=== PATIENT | male | born 1995 | race Caucasian/White ===

== ENCOUNTER 2022-06-06 13:27 | Inpatient (IN) | payer BC ==
[~2022-06-06] VITALS: Ht 175.3 cm; Wt 116.6 kg
[~2022-06-06 13:27] MED LIST: CLEOCIN HCL300 MG PO; FLAGYL500 MG PO; GLUCOPHAGE500 MG PO; LEVAQUIN750 MG PO; PREDNISONE20 MG PO
[2022-06-06 14:06] LABS: HEMOGLOBIN 18.3 gm/dl (14.0-17.5); RED BLOOD COUNT 6.05 M/UL (4.20-5.50); WHITE BLOOD COUNT 23.3 K/UL (4.5-11.0)
[2022-06-06 14:31] LABS: BUN/CREATININE RATIO 26 (0-10)
[2022-06-06] MEDS ORDERED: AMOXICILLIN875 MG PO (16:34)
[2022-06-06] MEDS ORDERED: TRICOR 145 MG145 MG PO (16:35)
[2022-06-06] MEDS ORDERED: JARDIANCE25 MG PO (16:35)
[2022-06-06] MEDS ORDERED: PAROEX473 ML PO (16:35)
[2022-06-06] MEDS ORDERED: ZESTRIL2.5 MG PO (16:35)
[2022-06-06] MEDS ORDERED: METFORMIN HCL1000 MG PO (16:36)
[2022-06-06] MEDS ORDERED: IBU800 MG PO (16:36)
[2022-06-06 17:58] LABS: BUN/CREATININE RATIO 22 (0-10)
[2022-06-06 20:53] LABS: BUN/CREATININE RATIO 27 (0-10)
[2022-06-07 01:39] LABS: BUN/CREATININE RATIO 25 (0-10)
[2022-06-07 05:23] LABS: HEMOGLOBIN 16.9 gm/dl (14.0-17.5); RED BLOOD COUNT 5.6 M/UL (4.20-5.50); WHITE BLOOD COUNT 17.8 K/UL (4.5-11.0)
[2022-06-07 05:29] LABS: BUN/CREATININE RATIO 23 (0-10)
[2022-06-07 12:19] LABS: BUN/CREATININE RATIO 22 (0-10)
[2022-06-07 15:24] LABS: BUN/CREATININE RATIO 21 (0-10)
[2022-06-07 20:12] LABS: BUN/CREATININE RATIO 20 (0-10)
[2022-06-07 23:57] LABS: BUN/CREATININE RATIO 19 (0-10)
[2022-06-08 04:45] LABS: HEMOGLOBIN 15.4 gm/dl (14.0-17.5); RED BLOOD COUNT 5.15 M/UL (4.20-5.50)
[2022-06-08 04:52] LABS: WHITE BLOOD COUNT 9.9 K/UL (4.5-11.0)
[2022-06-08 04:58] LABS: BUN/CREATININE RATIO 18 (0-10)
[2022-06-08 09:45] LABS: BUN/CREATININE RATIO 21 (0-10)
[2022-06-08 13:49] LABS: BUN/CREATININE RATIO 18 (0-10)
[2022-06-08 16:31] LABS: BUN/CREATININE RATIO 17 (0-10)
[2022-06-09 05:36] LABS: HEMOGLOBIN 14.7 gm/dl (14.0-17.5); RED BLOOD COUNT 4.98 M/UL (4.20-5.50); WHITE BLOOD COUNT 8.6 K/UL (4.5-11.0)
[2022-06-09 06:20] LABS: BUN/CREATININE RATIO 19 (0-10)
[2022-06-09] MEDS ORDERED: BASAGLAR K100 UNIT/1 SQ (09:56)
[2022-06-09] MEDS ORDERED: METFORMIN HCL1000 MG PO (09:56)
[2022-06-09] MEDS ORDERED: JARDIANCE25 MG PO (09:56)
[2022-06-09] MEDS ORDERED: ZESTRIL2.5 MG PO (09:56)
[2022-06-09] MEDS ORDERED: RYBELSUS7 MG PO (09:56)
[2022-06-09] MEDS ORDERED: ACTOS30 MG PO (11:09)
== END 2022-06-09 12:56 | disposition home or self-care (01) | DRG 639 ==
LOC: ER1 13:27 → CDU 15:51 → CCU 15:51
PROVIDERS: Emergency Medicine; Internal Medicine; Physician Assistant Medical; ADMIT Family Medicine
DX: E11.10 Type 2 diabetes mellitus with ketoacidosis without coma (principal); I10 Essential (primary) hypertension; Z20.822 Contact with and (suspected) exposure to COVID-19; K08.89 Other specified disorders of teeth and supporting structures; E66.9 Obesity, unspecified; E78.5 Hyperlipidemia, unspecified; Z79.4 Long term (current) use of insulin; Z68.36 Body mass index [BMI] 36.0-36.9, adult
CPT/HCPCS: 36415; 71045; 80048; 80053; 81001; 82009; 82803; 82962; 83036; 83605; 83690; 83735; 84100; 85025; 85027; 93005; 96361; 96374; 96375; 99285; C9113; J1650; J1885; J2405; J2550; U0002